=== PATIENT | male | born 1955 | race Caucasian/White ===

== ENCOUNTER 2017-01-04 03:44 | Emergency (ER) | payer OTHER ==
[~2017-01-04] VITALS: Ht 177.8 cm; Wt 99.8 kg
== END 2017-01-04 05:12 | disposition home or self-care (01) ==
LOC: ED 03:44
DX: S01.81XA Laceration without foreign body of other part of head, initial encounter (principal); S09.90XA Unspecified injury of head, initial encounter; Z88.0 Allergy status to penicillin; Z88.2 Allergy status to sulfonamides; W01.0XXA Fall on same level from slipping, tripping and stumbling without subsequent striking against object, initial encounter; Y93.89 Activity, other specified; Y92.89 Other specified places as the place of occurrence of the external cause; Y99.8 Other external cause status

== ENCOUNTER 2017-05-21 19:28 | Emergency (ER) | payer OTHER ==
[~2017-05-21] VITALS: Ht 177.8 cm; Wt 99.8 kg
[2017-05-21 20:29] LABS: BASO # 0.1 10*3/uL (0.0-0.1); BASO % 0.6 % (0.0-1.0); EOS # 0.3 10*3/uL (0.0-0.4); HEMATOCRIT 49.3 % (42.0-52.0); HEMOGLOBIN 16.5 g/dl (14.0-18.0); LYMPH # 3.4 10*3/uL (1.3-4.4); LYMPH % 31.2 % (27.0-41.0); MEAN CELL VOLUME 93.2 fl (80.0-94.0); MEAN CORPUSCULAR HGB 31.2 pg (27.0-31.0); MEAN CORPUSCULAR HGB CONC 33.5 g/dl (33.0-37.0); MEAN PLATELET VOLUME 10.1 fl (9.6-12.3); MONO # 1.3 10*3/uL (0.1-1.0); MONO % 12.4 % (3.0-9.0); NEUT # 5.7 10*3/uL (2.3-7.9); NEUT % 52.5 % (47.0-73.0); PLATELET COUNT AUTOMATED 222 10*3/uL (130-400); RED BLOOD COUNT 5.29 10*6/uL (4.50-5.90); RED CELL DISTRI WIDTH 12.7 % (0-14.5); WHITE BLOOD COUNT 10.8 10*3/uL (4.8-10.8)
[2017-05-21 20:52] LABS: ALBUMIN 3.9 gm/dl (3.1-4.5); ALKALINE PHOSPHATASE 55 U/L (45-117); BUN 20 mg/dl (7-24); CHLORIDE 110 mmol/L (98-107); CREATININE 1.32 mg/dL (0.70-1.30); LIPASE 498 U/L (73-393); SGOT/AST 32 IU/L (3-35); SGPT/ALT 51 U/L (12-78); SODIUM 141 mmol/L (136-145); TOTAL PROTEIN 7.7 gm/dL (6.4-8.2)
[2017-05-21 21:04] LABS: TROPONIN I < 0.015 ng/ml (<0.045)
[2017-05-21 22:26] LABS: BILIRUBIN NEGATIVE (NEGATIVE); BLOOD NEGATIVE (NEGATIVE); CLARITY CLEAR (CLEAR); COLOR YELLOW (YELLOW); GLUCOSE NEGATIVE (NEGATIVE); KETONE NEGATIVE (NEGATIVE); LEUKO ESTERASE NEGATIVE (NEGATIVE); NITRITE NEGATIVE (NEGATIVE); PH 5.5 (5.0-9.0); SPECIFIC GRAVITY 1.025 (1.005-1.030); UROBILINOGEN 0.2 E.U./dl (0.2-1.0)
[2017-05-21 22:34] LABS: BACTERIA 1+; EPITHELIAL CELLS 0-2
[2017-05-22] MEDS ORDERED: Percocet 325 MG1 TAB PO (01:05)
[2017-05-22] MEDS ORDERED: REGLAN5 MG PO (01:05)
== END 2017-05-22 01:35 | disposition home or self-care (01) ==
LOC: ED 19:28
PROVIDERS: Emergency Medicine Emergency Medical Services
DX: R10.9 Unspecified abdominal pain (principal); R07.81 Pleurodynia; R07.9 Chest pain, unspecified; Z88.0 Allergy status to penicillin; Z88.2 Allergy status to sulfonamides

== ENCOUNTER → 2017-05-22 | Outpatient (CLI) | payer OTHER ==
[~2017-05-22] MED LIST: Percocet 325 MG1 TAB PO; REGLAN5 MG PO
== END | disposition home or self-care (01) ==
LOC: US 08:07
DX: K76.0 Fatty (change of) liver, not elsewhere classified (principal); R10.11 Right upper quadrant pain